=== PATIENT | male | born 1945 | race Caucasian/White ===

== ENCOUNTER 2018-08-27 09:23 | Emergency (ER) | payer OTHER ==
[~2018-08-27] VITALS: Ht 170.2 cm; Wt 67.3 kg
[2018-08-27 09:33] VITALS: Ht 170.2 cm; Wt 67.3 kg
[2018-08-27 09:45] LABS: HEMATOCRIT 44.2 % (42.0-54.0); HEMOGLOBIN 15.1 g/dL (13.5-17.5); LYMPHOCYTES 30.3 % (15-50); MCH 32.8 pg (26.0-34.0); MCHC 34.2 g/dL (31.0-37.0); MCV 95.9 fL (80.0-100.0); MEAN PLATELET VOLUME 9.1 fL (7.4-10.4); PLATELET COUNT 189 10x3/uL (130-400); RBC 4.61 10x6/uL (4.20-6.10); RDW 12.8 % (11.5-14.5)
[2018-08-27 10:01] LABS: ALBUMIN 3.7 g/dL (3.4-5.0); ALKALINE PHOSPHATASE 65 U/L (46-116); ALT (SGPT) 22 U/L (10-68); BILIRUBIN - TOTAL 0.48 mg/dL (0.2-1.3); CALC OSMOLALITY 281 mosm/kg (275-300); CALCIUM 8.7 mg/dL (8.5-10.1); CARBON DIOXIDE 30.5 mmol/L (21.0-32.0); CHLORIDE - SERUM 103 mmol/L (98-107); CREATININE - SERUM 1.1 mg/dL (0.6-1.3); GLUCOSE 98 mg/dL (74-106); PROTEIN - SERUM 7.7 g/dL (6.4-8.2); SODIUM 141 mmol/L (136-145); UREA NITROGEN 16 mg/dL (7-18); eGFR NON AFRICAN AMERICAN 70 mL/min (90-120)
[2018-08-27 10:03] LABS: POTASSIUM - SERUM 5.1 mmol/L (3.5-5.1)
[2018-08-27] MEDS ORDERED: CARDIZEM LA180 MG PO (10:07)
[2018-08-27 10:14] LABS: CKMB 0.8 U/L (0.0-3.6); CREATINE KINASE 100 UL (21-232); PRO BNP 57 pg/mL (0-125); TROPONIN-I < 0.017 ng/mL (0.000-0.060)
[2018-08-27] MEDS ORDERED: ALBUTEROL SULF8.5 GM INH (10:52)
[2018-08-27] MEDS ORDERED: CELEXA20 MG PO (10:53)
[2018-08-27] MEDS ORDERED: CYCLOBENZAPRINE5 MG PO (10:54)
[2018-08-27] MEDS ORDERED: MULTI-DAY VITAM1 TAB PO (10:55)
[2018-08-27] MEDS ORDERED: FLOMAX0.4 MG PO (10:56)
[2018-08-27] MEDS ORDERED: STIOLTO RESPIMAT4 GM INH (10:56)
[2018-08-27 11:00] VITALS: BP 155/82
== END 2018-08-27 10:43 | disposition home or self-care (01) ==
LOC: D.ER 09:23
PROVIDERS: Emergency Medicine
DX: I48.92 Unspecified atrial flutter (principal)

== ENCOUNTER 2019-05-21 00:31 | Inpatient (IN) | payer MEDICARE ==
[~2019-05-21] VITALS: Ht 170.2 cm; Wt 86.8 kg
[~2019-05-21 00:31] MED LIST: ALBUTEROL SULF8.5 GM INH; CARDIZEM LA180 MG PO; CELEXA20 MG PO; CYCLOBENZAPRINE5 MG PO; FLOMAX0.4 MG PO; MULTI-DAY VITAM1 TAB PO; STIOLTO RESPIMAT4 GM INH
[2019-05-21] MEDS ORDERED: EYE DROPS (00:37)
[2019-05-21] MEDS ORDERED: ATROVENT 0.02%2.5 ML INH (00:38)
--- NOTE | 2019-05-21 01:00 | NUR ---
PT ADVISED OF ADMISSION. PT HAS [facility] AND [facility] A INSURANCE. REGISTRATION CALLED TO SPEAK WITH PT ABOUT INPATIENT STATUS VS [facility] TO [facility]. PT REQUEST TO STAY INPATIENT IN OUR FACILITY.
[2019-05-21 01:10] LABS: BASOPHILS 0.2 % (0-2); EOSINOPHILS 7.4 % (0-7); HEMATOCRIT 45.8 % (42.0-54.0); HEMOGLOBIN 15.1 g/dL (13.5-17.5); IMMATURE GRANULOCYTES 0.3 % (0-5); LYMPHOCYTES 13.8 % (15-50); MCH 31.5 pg (26.0-34.0); MCV 95.4 fL (80.0-100.0); MEAN PLATELET VOLUME 9.2 fL (7.4-10.4); MONOCYTES 9.9 % (2-11); NEUTROPHILS 68.4 % (40-80); RDW 12.9 % (11.5-14.5); WBC 12.9 10x3/uL (4.8-10.8)
[2019-05-21 01:12] LABS: PLATELET COUNT 242 10x3/uL (130-400)
[2019-05-21 01:23] LABS: CALC OSMOLALITY 264 mosm/kg (275-300); CALCIUM 9.3 mg/dL (8.5-10.1); CARBON DIOXIDE 34.2 mmol/L (21.0-32.0); CHLORIDE - SERUM 94 mmol/L (98-107); CREATININE - SERUM 0.9 mg/dL (0.6-1.3); GLUCOSE 109 mg/dL (74-106); POTASSIUM - SERUM 3.4 mmol/L (3.5-5.1); SODIUM 132 mmol/L (136-145); UREA NITROGEN 10 mg/dL (7-18); eGFR NON AFRICAN AMERICAN 88 mL/min (90-120)
[2019-05-21 01:37] LABS: ALBUMIN 2.9 g/dL (3.4-5.0); ALKALINE PHOSPHATASE 100 U/L (46-116); ALT (SGPT) 24 U/L (10-68); BILIRUBIN - TOTAL 0.49 mg/dL (0.2-1.3); CREATINE KINASE 20 UL (21-232); PRO BNP 164 pg/mL (0-125); PROTEIN - SERUM 7.9 g/dL (6.4-8.2); TROPONIN-I < 0.017 ng/mL (0.000-0.060)
--- NOTE | 2019-05-21 02:16 | NUR ---
INFUSION OF ZOSYN COMPLETE AT THIS TIME.
[2019-05-21] MEDS ORDERED: XALATAN 0.0052.5 ML LEFT EYE (02:44)
[2019-05-21] MEDS ORDERED: PRED FORTE5 ML LEFT EYE (02:46)
--- NOTE | 2019-05-21 02:57 | NUR ---
RECEIVED ORDER FOR TUMS FROM Juan HOOD APN FOR C/O HEARTBURN.
[2019-05-21 03:08] VITALS: BP 136/62; BMI 25.1
[2019-05-21 05:26] VITALS: BP 136/67
[2019-05-21 08:34] VITALS: BP 123/79
--- NOTE | 2019-05-21 09:00 | NUR ---
LAERT AND ORIENTED X4 WITH FALL PRECAUTIONS IN PLACE. LUNGS DIMINISHED POSTERIOR X4. O2 2L HI FLOW. IVF INFUSING AT PRESCRIBED RATE TO LT. HAND. DENIES ANY PAIN OR DISCOMFORT AND ENCOURAGED TO USE CALL LIGHT FOR ASSSIT.
[2019-05-21 12:52] VITALS: BP 111/71
[2019-05-21 13:02] VITALS: BMI 25.0
[2019-05-21 16:19] VITALS: BP 113/62
--- NOTE | 2019-05-21 19:00 | NUR ---
BEDSIDE REPORT RECEIVED AND CARE OF PT ASSUMED. PT LYING IN HIGH ALDRIDGE'S POSITION WATCHING TV. IV TO LEFT HAND PATENT WITH NS W/ 20 KCL INFUSING AT 75 ML/HR. TELEMETRY IN PLACE PER ORDER. WILL MONITOR FOR NEEDS.
--- NOTE | 2019-05-21 21:13 | NUR ---
HS MEDICATIONS GIVEN. WILL CONTINUE TO MONITOR FOR NEEDS.
[2019-05-21 21:36] VITALS: BP 128/74
[2019-05-22 01:05] VITALS: BP 130/61
[2019-05-22 05:16] VITALS: BP 139/82
[2019-05-22 06:33] LABS: BASOPHILS 0 % (0-2); EOSINOPHILS 0 % (0-7); HEMOGLOBIN 12.2 g/dL (13.5-17.5); IMMATURE GRANULOCYTES 0.2 % (0-5); LYMPHOCYTES 3.9 % (15-50); MCHC 32.1 g/dL (31.0-37.0); MCV 96.4 fL (80.0-100.0); MEAN PLATELET VOLUME 9.8 fL (7.4-10.4); MONOCYTES 3.9 % (2-11); PLATELET COUNT 282 10x3/uL (130-400); RBC 3.94 10x6/uL (4.20-6.10); RDW 13.2 % (11.5-14.5)
[2019-05-22 06:34] LABS: WBC 17.4 10x3/uL (4.8-10.8)
[2019-05-22 06:43] LABS: CALC OSMOLALITY 273 mosm/kg (275-300); CALCIUM 8.4 mg/dL (8.5-10.1); CHLORIDE - SERUM 98 mmol/L (98-107); CREATININE - SERUM 0.7 mg/dL (0.6-1.3); GLUCOSE 128 mg/dL (74-106); MAGNESIUM - SERUM 1.9 mg/dL (1.8-2.4); PHOSPHOROUS 3.4 mg/dL (2.5-4.9); SODIUM 136 mmol/L (136-145); UREA NITROGEN 12 mg/dL (7-18); eGFR NON AFRICAN AMERICAN > 90 mL/min (90-120)
[2019-05-22 07:56] VITALS: BP 134/77
--- NOTE | 2019-05-22 09:26 | NUR ---
PT ALERT X 4. BREATH SOUNDS DIMINISHED TO LOWER LOBES, 12L O2 PER HIGH FLOW NC, BREATHING SHALLOW, REPORTING SOB. TELEMETRY IN PLACE. IV TO LEFT HAND, PATENT, DRESSING CDI. PT REPORTING NO PAIN AT THIS TIME. BED LOW, CALL LIGHT IN REACH. NO OTHER NEEDS AT THIS TIME.
--- NOTE | 2019-05-22 19:00 | NUR ---
BEDSIDE REPORT RECEIVED AND CARE OF PT ASSUMED. PT LYING IN LOW ALDRIDGE'S POSITION WITH EYES CLOSED. IV TO LEFT HAND PATENT WITH NS W/ 20 KCL INFUSING AT 75 ML/HR. O2 IN USE VIA HIGH FLOW NC AT [address] WILL MONITOR FOR NEEDS.
[2019-05-22 19:30] VITALS: BP 157/92
--- NOTE | 2019-05-22 20:33 | NUR ---
HS MEDICATIONS GIVEN. WILL CONTINUE TO MONITOR FOR NEEDS.
[2019-05-23 00:30] VITALS: BP 162/87
[2019-05-23 04:30] VITALS: BP 140/77
[2019-05-23 05:54] LABS: BASOPHILS 0.1 % (0-2); EOSINOPHILS 0 % (0-7); HEMATOCRIT 38.5 % (42.0-54.0); HEMOGLOBIN 12.3 g/dL (13.5-17.5); IMMATURE GRANULOCYTES 0.4 % (0-5); LYMPHOCYTES 4.8 % (15-50); MCH 30.8 pg (26.0-34.0); MCHC 31.9 g/dL (31.0-37.0); MCV 96.5 fL (80.0-100.0); MEAN PLATELET VOLUME 9.7 fL (7.4-10.4); MONOCYTES 4.5 % (2-11); NEUTROPHILS 90.2 % (40-80); PLATELET COUNT 298 10x3/uL (130-400); RBC 3.99 10x6/uL (4.20-6.10); RDW 13.2 % (11.5-14.5); WBC 16.6 10x3/uL (4.8-10.8)
[2019-05-23 05:59] LABS: CALC OSMOLALITY 277 mosm/kg (275-300); CALCIUM 8.3 mg/dL (8.5-10.1); CARBON DIOXIDE 30.8 mmol/L (21.0-32.0); CHLORIDE - SERUM 101 mmol/L (98-107); CREATININE - SERUM 0.7 mg/dL (0.6-1.3); GLUCOSE 128 mg/dL (74-106); POTASSIUM - SERUM 3.7 mmol/L (3.5-5.1); SODIUM 138 mmol/L (136-145); UREA NITROGEN 13 mg/dL (7-18); VANCOMYCIN - TROUGH 6.4 ug/mL (10.0-20.0); eGFR NON AFRICAN AMERICAN > 90 mL/min (90-120)
[2019-05-23 08:10] VITALS: BP 153/85
--- NOTE | 2019-05-23 09:00 | NUR ---
ALERT AND ORIENTED X4. DYSPNEA NOTED W/O EXERTION LUNGS DIMISHED X4 ANTERIOR. WITH O2 12L HI-FLOW. TELEMETRY INTACT. IV TO LT. HAND WITH IVF INFUSING AT PRESCRIBED RATE W/O ANY S/S OF INFECTION /INFILTRATION. SCD'S IN PLACE. ENOCUARGED TO USE CALL LIGHT FOR ASSSIT.
--- NOTE | 2019-05-23 10:40 | NUR ---
RESPIRATORY THERAPY HERE FOR TREATMENT AND CONTINUED EVAL.
[2019-05-23 12:11] VITALS: BP 121/83
--- NOTE | 2019-05-23 19:00 | NUR ---
BEDSIDE REPORT RECEIVED AND CARE OF PT ASSUMED. PT LYING IN HIGH ALDRIDGE'S POSITION. IV TO RIGHT HAND PATENT WITH NS W/ 20 KCL INFUSING AT 75 ML/HR. TELEMETRY IN PLACE. O2 IN USE AT 12 L VIA HI FLOW NC. WILL MONITOR FOR NEEDS.
[2019-05-23 19:30] VITALS: BP 153/74
--- NOTE | 2019-05-23 20:33 | NUR ---
HS MEDICATIONS GIVEN. WILL CONTINUE TO MONITOR FOR NEEDS.
--- NOTE | 2019-05-23 20:40 | NUR ---
TUMS 1000 MG PO GIVEN PER REQUEST FOR HEARTBURN.
--- NOTE | 2019-05-23 21:00 | NUR ---
RT PLACED BIPAP ON PT. WILL CONTINUE TO MONITOR CLOSELY FOR NEEDS.
[2019-05-24 00:30] VITALS: BP 148/67
[2019-05-24 04:00] VITALS: BP 150/74
--- NOTE | 2019-05-24 05:30 | NUR ---
PT BATHED AND ALL LINENS AND GOWN CHANGED. POSITIONED FOR COMFORT.
[2019-05-24 06:30] LABS: BASOPHILS 0 % (0-2); EOSINOPHILS 0 % (0-7); HEMATOCRIT 42.4 % (42.0-54.0); HEMOGLOBIN 13.2 g/dL (13.5-17.5); IMMATURE GRANULOCYTES 0.2 % (0-5); LYMPHOCYTES 5.4 % (15-50); MCH 30.3 pg (26.0-34.0); MCHC 31.1 g/dL (31.0-37.0); MCV 97.2 fL (80.0-100.0); MEAN PLATELET VOLUME 9.7 fL (7.4-10.4); MONOCYTES 4.5 % (2-11); NEUTROPHILS 89.9 % (40-80); PLATELET COUNT 295 10x3/uL (130-400); RBC 4.36 10x6/uL (4.20-6.10); RDW 13.2 % (11.5-14.5); WBC 14.4 10x3/uL (4.8-10.8)
[2019-05-24 06:50] LABS: CALC OSMOLALITY 279 mosm/kg (275-300); CALCIUM 8.2 mg/dL (8.5-10.1); CARBON DIOXIDE 32.9 mmol/L (21.0-32.0); CHLORIDE - SERUM 101 mmol/L (98-107); CREATININE - SERUM 0.8 mg/dL (0.6-1.3); GLUCOSE 123 mg/dL (74-106); POTASSIUM - SERUM 3.8 mmol/L (3.5-5.1); SODIUM 139 mmol/L (136-145); UREA NITROGEN 15 mg/dL (7-18); eGFR NON AFRICAN AMERICAN > 90 mL/min (90-120)
[2019-05-24 08:29] VITALS: BP 165/85
--- NOTE | 2019-05-24 10:50 | NUR ---
PT RESTING IN BED. NO SIGNS OF DISTRESS. IV TO RIGHT HAND PATENT NO REDNESS OR TENDERNESS. ON TELEMETRY 76 SR. ON 12L HIGH FLOW. DENIES ANY FURHTER NEED AT THIS TIME. CALL LIGHT IN REACH BED LOW POSITION NO FAMILY AT BEDSIDE AT THIS TIME.
[2019-05-24 13:00] VITALS: BP 142/72
--- NOTE | 2019-05-24 14:07 | NUR ---
Nutrition follow-up: Diet: Low sodium PO intake ~77% average of last 9 meals Labs reviewed +BM Wt: 160# PO intake is good at this time RDN following.
[2019-05-24 15:45] VITALS: BP 137/71
--- NOTE | 2019-05-24 18:45 | NUR ---
I have reviewed this patient and I concur with the Shift Assessment completed by the Licensed Practical Nurse today this shift.
[2019-05-24 19:30] VITALS: BP 152/83; BP 162/84
--- NOTE | 2019-05-24 19:35 | NUR ---
PT LYING IN BED WITHOUT DISTRESS, AOX4. IV RIGHT HAND INFUSING NS20K @ 75. FAMILY AT BEDSIDE. DENIES NEEDS. CL IN REACH, WILL CTM
[2019-05-25 00:30] VITALS: BP 160/80
[2019-05-25 04:30] VITALS: BP 172/78
[2019-05-25 05:06] LABS: BASOPHILS 0.1 % (0-2); EOSINOPHILS 0 % (0-7); HEMATOCRIT 41.1 % (42.0-54.0); HEMOGLOBIN 13.1 g/dL (13.5-17.5); IMMATURE GRANULOCYTES 0.3 % (0-5); LYMPHOCYTES 5.1 % (15-50); MCH 30.5 pg (26.0-34.0); MCHC 31.9 g/dL (31.0-37.0); MCV 95.6 fL (80.0-100.0); MEAN PLATELET VOLUME 9.6 fL (7.4-10.4); MONOCYTES 6.7 % (2-11); NEUTROPHILS 87.8 % (40-80); PLATELET COUNT 316 10x3/uL (130-400); RDW 13.2 % (11.5-14.5); WBC 15.2 10x3/uL (4.8-10.8)
[2019-05-25 05:46] LABS: CALC OSMOLALITY 281 mosm/kg (275-300); CARBON DIOXIDE 30.9 mmol/L (21.0-32.0); CHLORIDE - SERUM 101 mmol/L (98-107); CREATININE - SERUM 0.8 mg/dL (0.6-1.3); GLUCOSE 141 mg/dL (74-106); POTASSIUM - SERUM 3.6 mmol/L (3.5-5.1); SODIUM 139 mmol/L (136-145); UREA NITROGEN 18 mg/dL (7-18); VANCOMYCIN - TROUGH 15.5 ug/mL (10.0-20.0); eGFR NON AFRICAN AMERICAN > 90 mL/min (90-120)
[2019-05-25 07:55] VITALS: BP 171/101
[2019-05-25 16:29] VITALS: BP 149/71
--- NOTE | 2019-05-25 18:44 | NUR ---
I have reviewed this patient and I concur with the Shift Assessment completed by the Licensed Practical Nurse today this shift.
[2019-05-25 19:30] VITALS: BP 169/80
--- NOTE | 2019-05-25 19:45 | NUR ---
PT SITTING UP IN BED WITHOUT DISTRESS, AOX4. IV LEFT HAND INFUSING NS20K @ 75. TELE IN PLACE. DENIES PAIN. STATES HE IS HAVING INDIGESTION, TUMES GIVEN. O2 12L HFNC. DENIES OTHER NEEDS AT THIS TIME. CL IN REACH, WILL CTM
[2019-05-26 00:30] VITALS: BP 172/74
[2019-05-26 05:09] VITALS: BP 140/62
--- NOTE | 2019-05-26 07:32 | NUR ---
PT RESTING IN BED. NO SIGNS OF DISTRESS. IV TO LEFT HAND PATENT NO REDNESS OR TENDERNESS. ON TELEMETRY 82 SR. ON 12L HIGHFLOW. DENIES ANY FURTHER NEED AT THIS TIME. CALL LIGHT IN REACH. BED LOW POSITION. NO FAMILY AT BEDSIDE AT THIS TIME.
[2019-05-26 07:33] LABS: CALC OSMOLALITY 274 mosm/kg (275-300); CALCIUM 7.8 mg/dL (8.5-10.1); CARBON DIOXIDE 32.2 mmol/L (21.0-32.0); CHLORIDE - SERUM 100 mmol/L (98-107); CREATININE - SERUM 0.7 mg/dL (0.6-1.3); GLUCOSE 122 mg/dL (74-106); POTASSIUM - SERUM 3.8 mmol/L (3.5-5.1); SODIUM 137 mmol/L (136-145); eGFR NON AFRICAN AMERICAN > 90 mL/min (90-120)
[2019-05-26 07:34] LABS: UREA NITROGEN 13 mg/dL (7-18)
--- NOTE | 2019-05-26 07:39 | MORECARE ---
CASE MANAGEMENT DISCHARGE SUMMARY PATIENT: NINFA CHAVEZ UNIT: [id number] ADM DATE: 05/21/19 AGE: 74 : 46 SEX: M ROOM/BED: D.2232 AUTHOR: ISAIAH SANDOVAL PHYSICIAN: REFERRING PHYSICIAN: QUIANA CRUZ MD DATE OF SERVICE: 05/26/19 Discharge Plan Patient Name: NINFA CHAVEZ [facility] [facility] 1945 Planned Disposition: Nursing Facility NIC Cert Anticipated Discharge Date: Discharge Date: Expected LOS: Initial Reviewer: [email or web address] Initial Review Date: 05/26/2019 Generated: 05/26/19 8:39 am DCPIA - Discharge Planning Initial Assessment Updated by [email or web address]: Lilliana Gonsalez on 05/26/19 7:38 am * Is the patient Alert and Oriented? Yes * How many steps to enter\exit or inside your home? 0/0 * PCP Dr Cruz at [facility] * Pharmacy All medications from [facility] * Preadmission Environment [facility] * Facility Name [facility] * ADLs Partial Dependent * Partial ADLs (Assistance needed) Ambulation Bathing Dressing Medication Management Toileting Transfers * Equipment Oxygen Wheelchair * Other Equipment All equipment from [facility]. States he is always in a wheelchair and uses oxygen 24 hours a day. * List name and contact numbers for known caregivers / representatives who currently or will assist patient after discharge: Lazara Chavez - - c [phone] [phone] * Verbal permission to speak to the caregivers and representatives has been obtained from the patient. Yes * Community resources currently utilized None * Additional services required to return to the preadmission environment? No * Can the patient safely return to the preadmission environment? Yes * Has this patient been hospitalized within the prior 30 days at any hospital? No Patient Name: NINFA CHAVEZ Page [phone] at 0739 All edits/amendments must be made on the electronic document DICTATION DATE: 05/26/19738 CARBIDE TOOL DIE MAKER: RICCI 05/26/19738 RPT#: [id number] DC DATE: STATUS: ADM IN [facility] [address] [facility] [place] [address] END OF REPORT
[2019-05-26 07:51] LABS: BASOPHILS 0 % (0-2); EOSINOPHILS 0.1 % (0-7); HEMATOCRIT 43.4 % (42.0-54.0); HEMOGLOBIN 13.9 g/dL (13.5-17.5); IMMATURE GRANULOCYTES 0.2 % (0-5); LYMPHOCYTES 5.2 % (15-50); MCH 30.5 pg (26.0-34.0); MCV 95.4 fL (80.0-100.0); MEAN PLATELET VOLUME 9.5 fL (7.4-10.4); MONOCYTES 4.4 % (2-11); NEUTROPHILS 90.1 % (40-80); PLATELET COUNT 329 10x3/uL (130-400); RBC 4.55 10x6/uL (4.20-6.10); RDW 13.2 % (11.5-14.5); WBC 11.8 10x3/uL (4.8-10.8)
--- NOTE | 2019-05-26 07:52 | MORECARE ---
CASE MANAGEMENT DISCHARGE SUMMARY PATIENT: NINFA JULIAN UNIT: [id number] ADM DATE: 05/21/19 AGE: 74 : 46 SEX: M ROOM/BED: D.2232 AUTHOR: LORIDOC PHYSICIAN: REFERRING PHYSICIAN: QUIANA CRUZ MD DATE OF SERVICE: 05/26/19 Discharge Plan Patient Name: NINFA JULIAN Facility: [facility]:[place] : 1945 Planned Disposition: Nursing Facility [facility] Cert Anticipated Discharge Date: Discharge Date: Expected LOS: Initial Reviewer: [email or web address] Initial Review Date: 05/26/2019 Generated: 05/26/19 8:52 am Comments DCP- Discharge Planning Updated by [email or web address]: Lilliana Gonsalez on 05/26/19 6:[address] Patient Name: NINFA JULIAN Admission Status: ER Accout number: [id number] Admission Date: 05-21-2019 : 1945 Admission Diagnosis: Attending: QUIANA CRUZ Current LOS: 5 Anticipated DC Date: Planned Disposition: Nursing Facility [facility] Cert Primary Insurance: MEDICARE PART A ONLY Discharge Planning Comments: CM met with patient to discuss discharge planning, he is alone in the room. He states he lives at the [facility] in a shelter bed. States he has lived there for about a month and a half. He states plan is to return to The [facility]. CM will continue to follow and assist with discharge planning/needs. Meter Tester Polyphase: Lilliana Gonsalez DCPIA - Discharge Planning Initial Assessment Updated by [email or web address]: Lilliana Gonsalez on 05/26/19 7:38 am * Is the patient Alert and Oriented? Yes * How many steps to enter\exit or inside your home? 0/0 * PCP Dr Cruz at [facility] * Pharmacy All medications from [facility] * Preadmission Environment [facility] * Facility Name [facility] * ADLs Partial Dependent * Partial ADLs (Assistance needed) Ambulation Bathing Dressing Medication Management Toileting Transfers * Equipment Oxygen Wheelchair * Other Equipment All equipment from [facility]. States he is always in a wheelchair and uses oxygen 24 hours a day. * List name and contact numbers for known caregivers / representatives who currently or will assist patient after discharge: Lazara Christian - c [phone] * Verbal permission to speak to the caregivers and representatives has been obtained from the patient. Yes * Community resources currently utilized None * Additional services required to return to the preadmission environment? No * Can the patient safely return to the preadmission environment? Yes * Has this patient been hospitalized within the prior 30 days at any hospital? No Last DP export: 05/26/19 6:39 a Patient Name: NINFA JULIAN Page [phone] at 0752 All edits/amendments must be made on the electronic document DICTATION DATE: 05/26/19750 CHEESEMAKING LABORER: RICCI 05/26/19750 RPT#: [id number] DC DATE: STATUS: ADM IN [facility] [address] [place] [address] END OF REPORT
[2019-05-26 08:03] VITALS: BP 151/85
[2019-05-26 12:15] VITALS: BP 149/80
--- NOTE | 2019-05-26 14:07 | EC ---
PATIENT:NINFA JULIAN DATE OF SERVICE: 05/21/19 SEX: M MEDICAL RECORD: [id number] DATE OF : [birth year] LOCATION:D.MS [facility] AGE OF PATIENT: 74 ADMISSION DATE: 05/21/19 REFERRING PHYSICIAN: INTERPRETING PHYSICIAN: THANIA CORW MD ECHOCARDIOGRAM REPORT ECHO CHARGES 4 ECHO COMPLETE Date: 05/22/19 CLINICAL DIAGNOSIS: CHF ECHOCARDIOGRAPHIC MEASUREMENTS (adult normal given) AC root (d.<3.7cm) 3.0 cm LV Septum d (<1.2 cm> 1.2 cm Valve Excursion 1.3 cm LV Septum (systole) 1.6 cm Left Atria (s.<4.0cm> 3.2 cm LVPW d(<1.2cm) 1.5 cm RV (d.<2.3cm) 3.2 cm LVPW (sytole) 1.6 cm LV diastole(<5.6CM) 4.9 cm MV E-F(>70mm/sec) cm LV systole 3.3 cm LVOT Diameter 1.8 cm MV exc.(>10mm) 1.6 cm Est.ejection fraction (50-75%) % DOPPLER: LVIT cm/sec A 92.0 cm/sec E 80.0 cm/sec LA cm/sec RVSP 24 mmHg LVOT 99 cm/sec AOP1/2T m/s Asc. Ao 135 cm/sec RVOT 75 cm/sec RA cm/sec PA 118 cm/sec AV Gradient Peak 7.32 mmHg AV Mean 4.28 mmHg AV Area 2.0 cm MV Gradient Peak 3.42 mmHg MV Mean 1.42 mmHg MV Area cm COMMENTS: Supervisor Epoxy Fabrication: Delphine MADRID Doll Wig Maker: 1 Dr. Crow TAPE# PACS Pericardial Effusion N DATE OF SERVICE: 05/22/2019 FINDINGS: 1. Left ventricular chamber size is within normal limits. Left ventricular systolic function is normal. Overall ejection fraction estimated at 60%. 2. Left atrium, right atrium, and right ventricle chamber size is within normal limits. 3. Valvular structures have normal structure and motion. 4. Doppler interrogation reveals trace tricuspid regurgitation, no other valvular insufficiency or stenosis. Pulmonary systolic pressure estimated at 24 ECHOCARDIOGRAM REPORT [id number] NINFA JULIAN mmHg. 5. No evidence of pericardial effusion or left ventricular thrombus. TRANSINT:[id number] Voice Confirmation ID: [id number] DOCUMENT ID: [id number] THANIA CROW MD at 1407 CC: [id number] DICTATION DATE: 05/22/191751 BUSINESS ENTERPRISE OFFICER: 05/22/19 211 ADM IN [place] [id number] [place] [address]
[2019-05-26 17:20] VITALS: BP 128/65
--- NOTE | 2019-05-26 18:45 | NUR ---
I have reviewed this patient and I concur with the Shift Assessment completed by the Licensed Practical Nurse today this shift.
[2019-05-26 21:00] VITALS: BP 120/71
--- NOTE | 2019-05-26 22:49 | NUR ---
A/O WITH NO SIGNS OF ACUTE DISTRESS NOTED. IV TO THE LT HAND WITH NO REDNESS OR SWELLING NOTED. NC @12L AND MARCELLA ALARM ON. DENIES NO NEEDS AT THIS TIME. CONTINUE PLAN OF CARE.
[2019-05-27 01:18] VITALS: BP 142/66
[2019-05-27 03:07] LABS: IMMUNOGLOBULIN E 3455 IU/mL (6-495)
[2019-05-27 04:22] VITALS: BP 142/79
[2019-05-27 06:32] LABS: BASOPHILS 0 % (0-2); EOSINOPHILS 0 % (0-7); HEMATOCRIT 42.1 % (42.0-54.0); HEMOGLOBIN 13.5 g/dL (13.5-17.5); IMMATURE GRANULOCYTES 0.4 % (0-5); LYMPHOCYTES 3.5 % (15-50); MCH 30.5 pg (26.0-34.0); MCHC 32.1 g/dL (31.0-37.0); MCV 95.2 fL (80.0-100.0); MEAN PLATELET VOLUME 9.6 fL (7.4-10.4); MONOCYTES 3.8 % (2-11); NEUTROPHILS 92.3 % (40-80); PLATELET COUNT 331 10x3/uL (130-400); RBC 4.42 10x6/uL (4.20-6.10); RDW 13.3 % (11.5-14.5)
[2019-05-27 06:37] LABS: WBC 15.5 10x3/uL (4.8-10.8)
[2019-05-27 07:16] LABS: CALCIUM 7.8 mg/dL (8.5-10.1); CARBON DIOXIDE 35.4 mmol/L (21.0-32.0); CHLORIDE - SERUM 100 mmol/L (98-107); GLUCOSE 153 mg/dL (74-106); POTASSIUM - SERUM 3.4 mmol/L (3.5-5.1); SODIUM 140 mmol/L (136-145); eGFR NON AFRICAN AMERICAN 88 mL/min (90-120)
[2019-05-27 07:17] LABS: CALC OSMOLALITY 284 mosm/kg (275-300); CREATININE - SERUM 0.9 mg/dL (0.6-1.3); UREA NITROGEN 20 mg/dL (7-18)
--- NOTE | 2019-05-27 07:35 | NUR ---
PT RESTING IN BED WITH BIPAP IN PLACE. NO ACUTE DISTRESS NOTED AT THIS TIME. DENIES PAIN AT THIS TIME. IV TO LEFT HAND WITH NS W/20KCL @ 50ML/HR INFUSING VIA PUMP. SITE WITHOUT REDNESS OR EDEMA. PT DENIES FURTHER NEEDS AT THIS TIME. CL WITHIN REACH. ENCOURAGED TO CALL WITH NEEDS. CONTINUE POC
[2019-05-27 09:22] VITALS: BP 154/84
--- NOTE | 2019-05-27 12:09 | MORECARE ---
CASE MANAGEMENT DISCHARGE SUMMARY PATIENT: NINFA CHAVEZ UNIT: [id number] ADM DATE: 05/21/19 AGE: 74 : [birth year] SEX: M ROOM/BED: D.2232 AUTHOR: ISAIAH SANDOVAL PHYSICIAN: REFERRING PHYSICIAN: QUIANA CRUZ MD DATE OF SERVICE: 05/27/19 Discharge Plan Patient Name: NINFA CHAVEZ Facility: [facility]:[place] : 1945 Planned Disposition: Nursing Facility [facility] Cert Anticipated Discharge Date: Discharge Date: Expected LOS: Initial Reviewer: [email or web address] Initial Review Date: 05/26/2019 Generated: 05/27/19 1:09 pm DCP- Discharge Planning Updated by [email or web address]: Lilliana Gonsalez on 05/26/19 6:[address] Patient Name: NINFA CHAVEZ Admission Status: ER Accout number: [id number] Admission Date: 05-21-2019 : 1945 Admission Diagnosis: Attending: QUIANA CRZU Current LOS: 5 Anticipated DC Date: Planned Disposition: Nursing Facility [facility] Cert Primary Insurance: MEDICARE PART A ONLY Discharge Planning Comments: CM met with patient to discuss discharge planning, he is alone in the room. He states he lives at the [facility] in a [facility] bed. States he has lived there for about a month and a half. He states plan is to return to [facility]. CM will continue to follow and assist with discharge planning/needs. User Acceptance Tester: Lilliana Gonsalez DCPIA - Discharge Planning Initial Assessment Updated by [email or web address]: Lilliana Gonsalez on 05/26/19 7:38 am * Is the patient Alert and Oriented? Yes * How many steps to enter\exit or inside your home? 0/0 * PCP Dr Cruz at [facility] * Pharmacy All medications from [facility] * Preadmission Environment Skilled Nursing [facility] * Facility Name [facility] * ADLs Partial Dependent * Partial ADLs (Assistance needed) Ambulation Bathing Dressing Medication Management Toileting Transfers * Equipment Oxygen Wheelchair * Other Equipment All equipment from [facility]. States he is always in a wheelchair and uses oxygen 24 hours a day. * List name and contact numbers for known caregivers / representatives who currently or will assist patient after discharge: Lazara Chavez - - c [phone] * Verbal permission to speak to the caregivers and representatives has been obtained from the patient. Yes * Community resources currently utilized None * Additional services required to return to the preadmission environment? No * Can the patient safely return to the preadmission environment? Yes * Has this patient been hospitalized within the prior 30 days at any hospital? No External Providers External Provider: [facility] Next Contact Date: Service Request Date: Service Type: Resolution: Reviewer: Comments: Coverage Notice Reviewer: [email or web address] Gino Herberty Wallace Notice Issued Date-Time: 05/26/2019 7:51 Notice Type: Patient Choice Letter Notice Delivered To: Patient Relationship to Patient: Self Lode Miner Name: Delivery Method: HAND - Hand Delivered Karlene Days: Prior Verbal Notification: Recipient Understood Notice: Yes Recipient Signature: Yes Med Rec Note Co-signed by Attending: Coverage Notice Comment: [facility] DP export: 05/26/19 6:52 a Patient Name: NINFA CHAVEZ Page 58037 at 1209 All edits/amendments must be made on the electronic document DICTATION DATE: 05/27/19 120 PROCESS SAFETY SPECIALIST: RICCI 05/27/19 1209 RPT#: [id number] DC DATE: STATUS: ADM IN [facility] [address] [place] [address] END OF REPORT
[2019-05-27 12:28] VITALS: BP 123/80
[2019-05-27 16:29] VITALS: BP 134/71
[2019-05-27 20:14] VITALS: BP 136/74
--- NOTE | 2019-05-27 22:09 | NUR ---
A/O WITH NO SIGNS OF ACUTE DISTRESS. IV TO THE LT WRIST WITH NO REDNESS OR SWELLING NOTED. NC @12L AND MARCELLA ALARM ON. DENIES NO NEEDS AT THIS TIME. CONTINUE PLAN OF CARE.
[2019-05-28 00:37] VITALS: BP 150/69
[2019-05-28 04:48] VITALS: BP 154/78
[2019-05-28 06:28] LABS: BASOPHILS 0.1 % (0-2); EOSINOPHILS 0 % (0-7); HEMATOCRIT 44.2 % (42.0-54.0); HEMOGLOBIN 13.9 g/dL (13.5-17.5); IMMATURE GRANULOCYTES 0.4 % (0-5); LYMPHOCYTES 3.7 % (15-50); MCH 30.2 pg (26.0-34.0); MCHC 31.4 g/dL (31.0-37.0); MCV 96.1 fL (80.0-100.0); MEAN PLATELET VOLUME 9.6 fL (7.4-10.4); MONOCYTES 4.2 % (2-11); NEUTROPHILS 91.6 % (40-80); PLATELET COUNT 356 10x3/uL (130-400); RDW 13.4 % (11.5-14.5); WBC 17.7 10x3/uL (4.8-10.8)
[2019-05-28 06:47] LABS: CALC OSMOLALITY 286 mosm/kg (275-300); CARBON DIOXIDE 34.7 mmol/L (21.0-32.0); CHLORIDE - SERUM 102 mmol/L (98-107); CREATININE - SERUM 0.8 mg/dL (0.6-1.3); GLUCOSE 125 mg/dL (74-106); POTASSIUM - SERUM 3.5 mmol/L (3.5-5.1); SODIUM 142 mmol/L (136-145); UREA NITROGEN 20 mg/dL (7-18); eGFR NON AFRICAN AMERICAN > 90 mL/min (90-120)
[2019-05-28 08:25] VITALS: BP 139/84
--- NOTE | 2019-05-28 09:53 | NUR ---
ALERT AND ORIENTED X4 WITH 02 12L HI FLOW. NO DYSPNEA NOTED WITH INSPIRATORY CRACKLES NOTED TO BUQ AND BLQ ANTERIOR.CAP REFILL <3 SEC. TELEMETRY INTACT. DENIES ANY PAIN OR DISCOMFORT WITH NON-PRODUCTIVE COUGH. ENCOURAGED TO USE CALL LIGHT FOR ASSSIT.
[2019-05-28 12:46] VITALS: BP 157/80
--- NOTE | 2019-05-28 13:37 | NUR ---
Nutrition follow-up: diet: Low sodium PO intake 75% average of last 3 meals labs reviewed Wt: 160# +BM RDN following.
--- NOTE | 2019-05-28 19:00 | NUR ---
BEDSIDE REPORT RECEIVED AND CARE OF PT ASSUMED. PT LYING IN HIGH ALDRIDGE'S POSITION WITH 12L HIGH FLOW NC IN USE. RIGHT FA PATENT WITH NS W/ 20 KCL IN FUSING AT 50 ML/HR. TELEMETRY IN PLACE AND READING 83 SR AT THIS ASSESSMENT. WILL MONITOR FOR NEEDS.
[2019-05-28 20:16] VITALS: BP 152/79
--- NOTE | 2019-05-28 20:53 | NUR ---
HS MEDICATIONS GIVEN TO INCLUDE TUMS PER PT REQUEST, PER PRN ORDER.
--- NOTE | 2019-05-28 21:30 | NUR ---
BIPAP PLACED BY RT PER ORDER.
[2019-05-29 00:46] VITALS: BP 167/97
[2019-05-29 05:31] VITALS: BP 164/91
[2019-05-29 05:32] LABS: HEMOGLOBIN 13.4 g/dL (13.5-17.5); MCH 30.5 pg (26.0-34.0); MCHC 31.9 g/dL (31.0-37.0); MCV 95.5 fL (80.0-100.0); MEAN PLATELET VOLUME 9.3 fL (7.4-10.4); PLATELET COUNT 388 10x3/uL (130-400); RDW 13.4 % (11.5-14.5); WBC 20.8 10x3/uL (4.8-10.8)
[2019-05-29 05:34] LABS: EOSINOPHILS 1 % (0-7); LYMPHOCYTES 5 % (15-50); MONOCYTES 3 % (2-11); NEUTROPHILS 89 % (40-80); PLATELET ESTIMATE NORMAL
[2019-05-29 05:48] LABS: CALC OSMOLALITY 284 mosm/kg (275-300); CARBON DIOXIDE 36.1 mmol/L (21.0-32.0); CHLORIDE - SERUM 102 mmol/L (98-107); CREATININE - SERUM 0.9 mg/dL (0.6-1.3); GLUCOSE 136 mg/dL (74-106); POTASSIUM - SERUM 3.1 mmol/L (3.5-5.1); SODIUM 141 mmol/L (136-145); UREA NITROGEN 19 mg/dL (7-18); eGFR NON AFRICAN AMERICAN 88 mL/min (90-120)
[2019-05-29 08:20] VITALS: BP 160/94
--- NOTE | 2019-05-29 10:04 | NUR ---
ALERT AND ORIENTED X4. CONTINUES HI-FLOW O2 AT 12 LITERS. TELEMETRY INTACT. INSPIRATORY CRACKES NOTED TO BUQ AND BLQ ANTERIOR BUT IMPROVED FROM YESTERDAY WITH NO DYSPNEA NOTED AT THIS TIME. IVF INFUSING AT PRESCRIBED RATE TO LT. F/A AND INTACT. ENCOUTRAGED TO USE CALL LIGHT FOR ASSIST.
[2019-05-29 12:21] VITALS: BP 161/87
[2019-05-29 17:29] VITALS: BP 149/72
--- NOTE | 2019-05-29 19:00 | NUR ---
BEDSIDE REPORT RECEIVED AND CARE OF PT ASSUMED. PT LYING IN LOW ALDRIDGE'S POSITION WATCHING TV. O2 IN USE AT 12 L VIA HI FLOW NC. TELEMETRY IN PLACE PER ORDER AND READING 81 SR AT THIS ASSESSMENT. IV TO RIGHT FA PATENT WITH NS INFUSING AT 50 ML/HR. WILL MONITOR FOR NEEDS.
[2019-05-29 20:00] VITALS: BP 148/65
--- NOTE | 2019-05-29 20:20 | NUR ---
SPO2 88% ON 12 L HI FLOW. CALLED RT TO ASSESS PT. BIPAP PLACED BY RT.
--- NOTE | 2019-05-29 20:55 | NUR ---
HS MEDICATIONS GIVEN TO INCLUDE TUMS PER REQUEST, PER PRN ORDER. WILL CONTINUE TO MONITOR FOR NEEDS.
[2019-05-30] VITALS: BP 176/98
[2019-05-30 04:00] VITALS: BP 152/81
[2019-05-30 05:36] LABS: BASOPHILS 0 % (0-2); EOSINOPHILS 0 % (0-7); HEMATOCRIT 41.8 % (42.0-54.0); HEMOGLOBIN 13.2 g/dL (13.5-17.5); IMMATURE GRANULOCYTES 0.6 % (0-5); LYMPHOCYTES 3.1 % (15-50); MCH 30.3 pg (26.0-34.0); MCHC 31.6 g/dL (31.0-37.0); MCV 96.1 fL (80.0-100.0); MEAN PLATELET VOLUME 9.4 fL (7.4-10.4); MONOCYTES 3.9 % (2-11); NEUTROPHILS 92.4 % (40-80); PLATELET COUNT 387 10x3/uL (130-400); RBC 4.35 10x6/uL (4.20-6.10); RDW 13.7 % (11.5-14.5); WBC 21.3 10x3/uL (4.8-10.8)
[2019-05-30 05:46] LABS: CALC OSMOLALITY 282 mosm/kg (275-300); CALCIUM 7.6 mg/dL (8.5-10.1); CARBON DIOXIDE 35.9 mmol/L (21.0-32.0); CHLORIDE - SERUM 101 mmol/L (98-107); CREATININE - SERUM 0.8 mg/dL (0.6-1.3); GLUCOSE 128 mg/dL (74-106); POTASSIUM - SERUM 3.4 mmol/L (3.5-5.1); SODIUM 140 mmol/L (136-145); UREA NITROGEN 17 mg/dL (7-18); eGFR NON AFRICAN AMERICAN > 90 mL/min (90-120)
[2019-05-30 08:40] VITALS: BP 147/80
--- NOTE | 2019-05-30 09:00 | NUR ---
ALERT AND OREINTED X4 NO DYSPNEA NOTED AT THIS TIME WITH OW HIFLOW AT 12 LITERS/MIN. INSPIRATORY CRACLES NOTED X4 ANTERIOR. ADN ENCOURAGED TO USE INCENTIVE SPIROMETER. DENIES ANY PAIN OR DISCOMFORT AT THIS TIME. TELEMETRY INTACT. ENCOURAGED TO USE CALL LIGHT FOR ASSIST.
[2019-05-30 13:22] VITALS: BP 158/80
[2019-05-30 16:46] VITALS: BP 155/83
--- NOTE | 2019-05-30 19:00 | NUR ---
BEDSIDE REPORT RECEIVED AND CARE OF PT ASSUMED. PT LYING IN HIGH ALDRIDGE'S POSITION. O2 IN USE VIA HI FLOW NC AT 12 L. IV TO RIGHT FA PATENT WITH NS W/ 20 KCL INFUSING AT 50 ML/HR. TELEMETRY IN PLACE AND READING 83 SR AT THIS ASSESSMENT.
--- NOTE | 2019-05-30 19:33 | NUR ---
PLACED ON BILEVEL FIO2 80% SP02 CURRENTLY 93% BILATERAL C/D BS RR 36 ZERO CYANOSIS SOB LANIE APPLICATION WELL
--- NOTE | 2019-05-30 19:55 | NUR ---
SPO2 IN THE 80'S PER RT. BIPAP PLACED.
[2019-05-30 20:11] VITALS: BP 135/84
--- NOTE | 2019-05-30 21:42 | NUR ---
HS MEDICATIONS GIVEN. PT REQUESTED TO HAVE BIPAP OFF FOR A WHILE. O2 PLACED VIA HI FLOW NC AT 12 L PER ORDER.
--- NOTE | 2019-05-30 23:00 | NUR ---
BIPAP REPLACED BY RT...SPO2 IN THE 80'S AT THIS ASSESSMENT.
[2019-05-31 00:52] VITALS: BP 140/72
[2019-05-31 05:19] VITALS: BP 160/70
[2019-05-31 06:24] LABS: HEMATOCRIT 41.5 % (42.0-54.0); MCH 30.2 pg (26.0-34.0); MCHC 31.3 g/dL (31.0-37.0); MCV 96.3 fL (80.0-100.0); MEAN PLATELET VOLUME 9.3 fL (7.4-10.4); PLATELET COUNT 220 10x3/uL (130-400); RBC 4.31 10x6/uL (4.20-6.10); RDW 13.6 % (11.5-14.5); WBC 21.2 10x3/uL (4.8-10.8)
[2019-05-31 06:37] LABS: CALC OSMOLALITY 279 mosm/kg (275-300); CALCIUM 7.6 mg/dL (8.5-10.1); CARBON DIOXIDE 34.1 mmol/L (21.0-32.0); CHLORIDE - SERUM 102 mmol/L (98-107); CREATININE - SERUM 0.7 mg/dL (0.6-1.3); GLUCOSE 130 mg/dL (74-106); POTASSIUM - SERUM 3.9 mmol/L (3.5-5.1); SODIUM 138 mmol/L (136-145); UREA NITROGEN 17 mg/dL (7-18); eGFR NON AFRICAN AMERICAN > 90 mL/min (90-120)
--- NOTE | 2019-05-31 07:52 | NUR ---
ALERT AND ORIENTED. LUNGS DIMINISHED BILATERALLY. INSPIRATORY WHEEZES HEART THROUGHOUT. HEART SOUNDS S1 AND S2 HEARD IN ALL MARTINEZ. TELEMETRY IN PLACE. IV TO RFA PATENT WITHOUT REDNESS. WEARING BIPAP. DENIES PAIN. DENIES NEEDS. BED LOW. CALL CORDERO AND PERSONAL ITEMS IN REACH. WILL CONTINUE TO MONITOR.
[2019-05-31 07:59] VITALS: BP 137/89
--- NOTE | 2019-05-31 10:00 | NUR ---
RESTING IN BED. FAMILY AT BEDSIDE. DENIES NEEDS. WILL CONTINUE TO MONITOR.
[2019-05-31 11:16] LABS: LYMPHOCYTES 5 % (15-50); MONOCYTES 6 % (2-11); NEUTROPHILS 88 % (40-80); PLATELET ESTIMATE NORMAL
[2019-05-31 12:50] VITALS: BP 140/71
--- NOTE | 2019-05-31 14:23 | NUR ---
RESTING IN BED. DENIES NEEDS. WILL CONTINUE TO MONITOR.
[2019-05-31 16:08] VITALS: BP 134/71
--- NOTE | 2019-05-31 19:02 | NUR ---
RESTING IN BED. DENIES NEEDS. BED LOW. CALL CORDERO AND PERSONAL ITEMS IN REACH.
[2019-05-31 20:42] VITALS: BP 146/73
[2019-06-01] VITALS (12 sets, daily range): BP systolic 145–174; BP diastolic 86–106
--- NOTE | 2019-06-01 07:38 | NUR ---
ALERT AND ORIENTED. LUNGS DIMINISHED WITH WHEEZES TO BUL. HEART SOUNDS S1 AND S2 HEARD IN ALL MARTINEZ. BOWEL SOUNDS ACTIVE X 4. SKIN INTACT WITHOUT REDNESS. IV TO RFA PATENT WITHOUT REDNESS. WEARING BIPAP. DENIES NEEDS. BED LOW. FALL PRECAUTIONS IN PLACE. CALL CORDERO AND PERSONAL ITEMS IN REACH. WILL CONTINUE TO MONITOR.
--- NOTE | 2019-06-01 15:14 | NUR ---
RESTING IN BED. DENIES NEEDS. WILL CONTINUE TO MONITOR.
--- NOTE | 2019-06-01 17:07 | NUR ---
RECEIVED PT TO ROOM VIA STRETCHER ACCOMPANIED BY STAFF FROM FLOOR. PT PUT ON BIPAP, RR 47-PT DENIES ANY SOB OR ANXIETY. PT STATES "I FEEL FINE". ONLY UPPER LOBES MOVING AIR. PT USING INTERCOSTAL ACCESSORY MUSCLES TO BREATH. BILATERAL ARM BRUISES. LOWER EXTREMITIES HAVE +1 NON PITTING EDEMA. REDDENED SKIN ON BUTTOCKS, PT DENIES ANY DISCOMFORT. VSS. NO NEEDS OR DISTRESS AT THIS TIME. WILL CONT TO MONITOR.
--- NOTE | 2019-06-01 17:07 | NUR ---
PATIENT TRANSFERRRED TO ICU D/T O2 SAT 88% ON 40L. ATTEMPTED TO CALL CAROLYN TO NOTIFY OF TRANSFER. NO ANSWER AND NO VOICEMAIL.
--- NOTE | 2019-06-01 19:00 | NUR ---
PT REPORT RECEIVED FROM DAY SHIFT NURSE. SHIFT ASSESSMENT COMPLETED. PT ON BIPAP CURRENTLY. RT ADVISED TO NOT TAKE PT OFF BIPAP BC PT DESATS QUICKLY WHEN OFF. WILL CONTINUE TO MONITOR
--- NOTE | 2019-06-01 21:00 | NUR ---
PT RESTING IN BED CURRENTLY WATCHING TV. NO VISIBLE SIGNS OF DISTRESS NOTED. TRIED TO GIVE PT PO MEDS HOWEVER PT UNABLE TO TOLERATE COMING OFF BIPAP. PT DESATS QUICKLY
--- NOTE | 2019-06-01 23:00 | NUR ---
PT RESTING IN BED WATCHING TV. REASSESSMENT COMPLETED. NO VISIBLE SIGNS OF DISTRESS NOTED. BLOOD PRESSURE CONTINUING TO INCREASE. WILL CONTINUE TO MONITOR
[2019-06-02] VITALS (24 sets, daily range): BP systolic 125–172; BP diastolic 60–96
--- NOTE | 2019-06-02 01:05 | NUR ---
DR CRUZ PAGED REGARDING PT BP. AWAITING CALL BACK. PT CURRENTLY RESTING WITH BIPAP STILL IN USE.
--- NOTE | 2019-06-02 01:30 | NUR ---
PT COMPLAINED OF PAIN AT IV SITE. UPON FURTHER INSPECTION IT WAS DETERMINED THAT THE IV INFILTRATED. RIGHT FOREARM IV WAS REMOVED AND A NEW IV IS ABOUT TO BE STARTED.
--- NOTE | 2019-06-02 02:27 | NUR ---
NEW IV STARTED LEFT FOREARM. PT TOLERATED WELL. IV DRAWS AND FLUSHES.
--- NOTE | 2019-06-02 03:00 | NUR ---
PT REASSESSMENT COMPLETED. NO VISIBLE SIGNS OF DISTRESS NOTED. VSS. WILL CONTINUE TO MONITOR
--- NOTE | 2019-06-02 05:00 | NUR ---
PT RESTING IN BED. CURRENTLY ON BIPAP. NO VISIBLE SIGNS OF DISTRESS NOTED. VSS. WILL CONTINUE TO MONITOR
--- NOTE | 2019-06-02 07:30 | NUR ---
ASSESSMENT PER FLOW SHEET. PT IS WITHOUT DISTRESS THIS AM. AWAKENS AND IS ALERT. 02 SATS 93% ON BIPAP 100%.MONITOR
--- NOTE | 2019-06-02 09:18 | NUR ---
Nutrition follow-up: Pt is now in ICU due to respiratory distress; on BIPAP Diet: low sodium PO intake has declined due to BIPAP in place Labs reviewed wt: 174# +BM Pt would benefit from ProcalAmine PPN @ 75 ml/hr RDN following.
[2019-06-02 09:50] LABS: BASOPHILS 0 % (0-2); EOSINOPHILS 0.2 % (0-7); HEMATOCRIT 49.2 % (42.0-54.0); HEMOGLOBIN 16.1 g/dL (13.5-17.5); IMMATURE GRANULOCYTES 0.7 % (0-5); LYMPHOCYTES 4.8 % (15-50); MCH 31.4 pg (26.0-34.0); MCHC 32.7 g/dL (31.0-37.0); MCV 96.1 fL (80.0-100.0); MEAN PLATELET VOLUME 9.6 fL (7.4-10.4); MONOCYTES 3.5 % (2-11); NEUTROPHILS 90.8 % (40-80); PLATELET COUNT 309 10x3/uL (130-400); RBC 5.12 10x6/uL (4.20-6.10); RDW 14.2 % (11.5-14.5); WBC 29.5 10x3/uL (4.8-10.8)
[2019-06-02 09:51] LABS: CALC OSMOLALITY 278 mosm/kg (275-300); CALCIUM 8.2 mg/dL (8.5-10.1); CARBON DIOXIDE 35.5 mmol/L (21.0-32.0); CHLORIDE - SERUM 100 mmol/L (98-107); CREATININE - SERUM 0.8 mg/dL (0.6-1.3); POTASSIUM - SERUM 3.7 mmol/L (3.5-5.1); SODIUM 140 mmol/L (136-145); UREA NITROGEN 16 mg/dL (7-18); eGFR NON AFRICAN AMERICAN > 90 mL/min (90-120)
[2019-06-02 09:52] LABS: GLUCOSE 82 mg/dL (74-106)
--- NOTE | 2019-06-02 10:12 | NUR ---
REMAINS WITHOUT NEEDS.IV ABX INFUSING.WITHOUT CHANGE.
--- NOTE | 2019-06-02 10:30 | NUR ---
LYING IN BED,WITHOUT DISTRESS. 02 SATS NOW 91-92 ON 40 LITERS 100% VAPOTHERM.
--- NOTE | 2019-06-02 10:50 | NUR ---
PT O2 SATS DROPS TO 64%. PLACED BACK ON BIPAP 100% PER DR. DIEGO
--- NOTE | 2019-06-02 11:53 | NUR ---
PT IS WITHOUT DISTRESS.BIPAP 100%,02 SATS 93%.
--- NOTE | 2019-06-02 13:42 | NUR ---
ASSUMED CARE OF PT AT THIS TIME, PT RESTING IN BED ASLEEP. VSS AND WNL. WILL CONT TO FOLLOW POC
--- NOTE | 2019-06-02 14:34 | NUR ---
PT RESTING IN BED ASLEEP, VSS AND WNL. DENIES ANY NEEDS AT THIS TIME, WILL CONT TO FOLLOW POC
--- NOTE | 2019-06-02 15:29 | NUR ---
PT RR 35, O2 SAT 83%-88% ON BIPAP. RT HERE AND ASKED THEM TO COME TO ROOM, PT STATES HE FEELS ANXIOUS. PAGED
--- NOTE | 2019-06-02 15:40 | NUR ---
NEW ORDER RECIEVED FOR ATIVAN PRN ANXIETY
--- NOTE | 2019-06-02 16:35 | NUR ---
PT RESTING IN BED, FAMILY AT BEDSIDE. VSS AND WNL. DENIES ANY NEEDS AT THIS TIME, WILL CONT TO FOLLOW POC
--- NOTE | 2019-06-02 18:23 | NUR ---
PT RESTING IN BED, VSS AND WNL. CALL LIGHT WITHIN REACH. DENIES ANY NEEDS AT THIS TIME. WILL CONT TO FOLLOW POC
--- NOTE | 2019-06-02 19:00 | NUR ---
PT REPORT RECEIVED FROM DAY SHIFT NURSE. SHIFT ASSESSMENT COMPLETED AT THIS TIME. PT CURRENTLY ON BIPAP. NO VISIBLE SIGNS OF DISTRESS NOTED. WILL CONTINUE TO MONITOR
--- NOTE | 2019-06-02 21:00 | NUR ---
PT RESTING IN BED. UNABLE TO GIVE PO MEDS DUE TO PT BEING UNABLE TO TOLERATE COMING OFF OF BIPAP. VSS. WILL CONTINUE TO MONITOR
--- NOTE | 2019-06-02 23:00 | NUR ---
PT RESTING IN BED. REASSESSMENT COMPLETED AT THIS TIME. NO VISIBLE SIGNS OF DISTRESS NOTED AT THIS TIME. VSS. WILL CONTINUE TO MONITOR
[2019-06-03] VITALS (26 sets, daily range): BP systolic 127–166; BP diastolic 74–107; Ht 170.2 cm; Wt 86.8 kg
--- NOTE | 2019-06-03 01:00 | NUR ---
PT RESTING IN BED. BIPAP STILL IN USE. PT IS EASILY AROUSED. VSS. WILL CONTINUE TO MONITOR
--- NOTE | 2019-06-03 02:05 | NUR ---
PT BECAME TACHYCARDIC WITH A HR IN THE 140'S. PT ASSESSED AND WHEN AWOKEN WAS ALERT AND ORIENTED. NO VISIBLE SIGNS OF DISTRESS WERE NOTED.
--- NOTE | 2019-06-03 02:15 | NUR ---
ERWIN MOSS CALLED AND GIVEN UPDATE CONCERNING PT BECOMING TACHYCARDIC. ORDERS RECEIVED TO CONSULT CARDIOLOGY.
--- NOTE | 2019-06-03 02:20 | NUR ---
DR ANTONIO CARDIOLOGY CONSULTED REGARDING PT TACHYCARDIA. ORDERS RECEIVED TO START CARDIZEM DRIP AT 10MG/HR.
--- NOTE | 2019-06-03 03:15 | NUR ---
PT REASSESSMENT COMPLETED. CARDIZEM DRIP STARTED AT THIS TIME. NO VISIBLE SIGNS OF DISTRESS NOTED. VSS. WILL CONTINUE TO MONITOR
[2019-06-03 04:44] LABS: CALC OSMOLALITY 280 mosm/kg (275-300); CALCIUM 7.6 mg/dL (8.5-10.1); CARBON DIOXIDE 34.4 mmol/L (21.0-32.0); CHLORIDE - SERUM 103 mmol/L (98-107); CREATININE - SERUM 0.7 mg/dL (0.6-1.3); GLUCOSE 108 mg/dL (74-106); SODIUM 139 mmol/L (136-145); UREA NITROGEN 18 mg/dL (7-18); eGFR NON AFRICAN AMERICAN > 90 mL/min (90-120)
[2019-06-03 04:50] LABS: HEMATOCRIT 40.6 % (42.0-54.0); HEMOGLOBIN 13.1 g/dL (13.5-17.5); MCH 30.7 pg (26.0-34.0); MCHC 32.3 g/dL (31.0-37.0); MCV 95.1 fL (80.0-100.0); MEAN PLATELET VOLUME 9.5 fL (7.4-10.4); PLATELET COUNT 311 10x3/uL (130-400); RBC 4.27 10x6/uL (4.20-6.10); RDW 14.1 % (11.5-14.5); WBC 23.8 10x3/uL (4.8-10.8)
--- NOTE | 2019-06-03 05:00 | NUR ---
PT RESTING IN BED. BIPAP STILL IN USE. NO VISIBLE SIGNS OF DISTRESS NOTED. VSS. WILL CONTINUE TO MONITOR
--- NOTE | 2019-06-03 07:00 | NUR ---
PT RESTING IN BED, VSS AND WNL. SHIFT ASSESSMENT PERFORMED. DENIES ANY NEEDS AT THIS TIME. WILL CONT TO FOLLOW POC
--- NOTE | 2019-06-03 09:00 | NUR ---
PT RESTING IN BED, BIPAP ON AT 100%. VSS AND WNL. DENIES ANY NEEDS AT THIS TIME, CALL LIGHT WITHIN REACH. WILL CONT TO FOLLOW POC
[2019-06-03 10:04] LABS: LYMPHOCYTES 3 % (15-50); MONOCYTES 3 % (2-11); NEUTROPHILS 92 % (40-80); PLATELET ESTIMATE NORMAL; ROULEAUX OCC
--- NOTE | 2019-06-03 11:54 | NUR ---
HERE AND STATES PT CAN D/C NS WITH K DUE TO K LEVEL WNL. NEW ORDERS RECIEVED FOR D5NS
--- NOTE | 2019-06-03 12:00 | NUR ---
PIV TO PT LEFT FA INFILTRATED AND LEFT ARM SWOLLEN AND RED. REMOVED PIV WITH CATHETER TIP INTACT. 22G PIV INSERTED X1 ATTEMPT TO RIGHT FA. PT TOLERATED WELL. HERE AND NOTIFIED OF SWOLLEN LEFT ARM. NEW ORDERS RECIEVED TO OBTAIN A DOPPLER OF LEFT ARM TO RULE OUT THROMBUS.
--- NOTE | 2019-06-03 13:22 | NUR ---
HERE AND GAVE ORDERS TO INCREASE LOVENOX TO 80MG BID DUE TO POSITIVE DVT TO LEFT ARM
--- NOTE | 2019-06-03 15:00 | NUR ---
PT RESTING IN BED, CONTIUES BIPAP AT 100% VSS AND WNL. CALL LIGHT WITHIN REACH. DENIES ANY NEEDS AT THIS TIME. WILL CONT TO FOLLOW POC
[2019-06-03 15:10] LABS: ANCA - ANTIMYELOPEROXIDASE <9.0 U/mL (0.0-9.0); ANCA - ANTIPROTEINASE 3 <3.5 U/mL (0.0-3.5); ANCA - ATYPICAL <1:20 titer (Neg:<1:20); ANCA - CYTOPLASMIC <1:20 titer (Neg:<1:20); ANCA - PERINUCLEAR <1:20 titer (Neg:<1:20)
--- NOTE | 2019-06-03 16:00 | NUR ---
PT RIGHT ARM SWOLLEN, RED, AND WARM. PT HAS A PIV TO RIGHT FA. NOTIFIED . NEW ORDERS GIVEN TO PLACE CVL.
--- NOTE | 2019-06-03 16:50 | NUR ---
HERE AND PLACED CENTRAL LINE TO RIGHT IJ. PT TOLERATED WELL
--- NOTE | 2019-06-03 17:29 | NUR ---
NOTIFIED NURSE THAT CENTRAL LINE IS IN PLACE AND OK TO USE
--- NOTE | 2019-06-03 18:20 | NUR ---
PIV TO RIGHT FA REMOVED WITH CATHETER TIP INTACT. PT TOLERATED WELL
--- NOTE | 2019-06-03 19:00 | NUR ---
PT REPORT RECEIVED FROM DAY SHIFT NURSE. PT CURRENTLY ON BIPAP WITH OXYGEN SATS IN THE UPPER 80'S. PT ALERT AND ORIENTED. NO COMPLAINTS NOTED AT THIS TIME. SHIFT ASSESSMENT COMPLETED. WILL CONTINUE TO MONITOR
--- NOTE | 2019-06-03 20:15 | NUR ---
PT UNABLE TO TOLERATE REMOVING BIPAP TO TAKE ORAL PILLS. DESATS QUICKLY. WILL CONTINUE TO MONITOR
--- NOTE | 2019-06-03 21:00 | NUR ---
PT RESTING IN BED. ON BIPAP. NO VISIBLE SIGNS OF DISTRESS NOTED. CHANGED LOCATION OF PULSE OX FROM FINGERTIP TO FOREHEAD. BETTER PULSE OX READING AFTER CHANGE. VSS. WILL CONTINUE TO MONITOR
--- NOTE | 2019-06-03 23:00 | NUR ---
PT REASSESSMENT COMPLETED. NO VISIBLE SIGNS OF DISTRESS NOTED. VSS. NO COMPLAINTS NOTED AT THIS TIME. WILL CONTINUE TO MONITOR
[2019-06-04] VITALS (25 sets, daily range): BP systolic 143–178; BP diastolic 70–99
--- NOTE | 2019-06-04 01:00 | NUR ---
PT RESTING IN BED. NO VISIBLE SIGNS OF DISTRESS NOTED. VSS. PT REFUSED TO BE TURNED OFF HIS BACK. WILL CONTINUE TO MONITOR
--- NOTE | 2019-06-04 03:00 | NUR ---
PT REASSESSMENT COMPLETED. PT TOLERATED WELL. PT RESTING IN BED AROUSES EASILY NO VISIBLE SIGNS OF DISTRESS NOTED. VSS. WILL CONTINUE TO MONITOR.
[2019-06-04 04:12] LABS: ALBUMIN 1.9 g/dL (3.4-5.0); ALKALINE PHOSPHATASE 82 U/L (46-116); ALT (SGPT) 29 U/L (10-68); BILIRUBIN - TOTAL 0.49 mg/dL (0.2-1.3); CALCIUM 7.5 mg/dL (8.5-10.1); CARBON DIOXIDE 33.6 mmol/L (21.0-32.0); CHLORIDE - SERUM 104 mmol/L (98-107); CREATININE - SERUM 0.6 mg/dL (0.6-1.3); PHOSPHOROUS 2.1 mg/dL (2.5-4.9); PROTEIN - SERUM 5.7 g/dL (6.4-8.2); SODIUM 142 mmol/L (136-145); UREA NITROGEN 16 mg/dL (7-18); eGFR NON AFRICAN AMERICAN > 90 mL/min (90-120)
[2019-06-04 04:13] LABS: BASOPHILS 0 % (0-2); EOSINOPHILS 0 % (0-7); HEMATOCRIT 37.9 % (42.0-54.0); HEMOGLOBIN 12.2 g/dL (13.5-17.5); IMMATURE GRANULOCYTES 0.3 % (0-5); LYMPHOCYTES 2.3 % (15-50); MCH 30.3 pg (26.0-34.0); MCHC 32.2 g/dL (31.0-37.0); MEAN PLATELET VOLUME 9.5 fL (7.4-10.4); MONOCYTES 2.5 % (2-11); NEUTROPHILS 94.9 % (40-80); PLATELET COUNT 271 10x3/uL (130-400); RBC 4.03 10x6/uL (4.20-6.10); RDW 13.9 % (11.5-14.5); WBC 21.2 10x3/uL (4.8-10.8)
[2019-06-04 04:19] LABS: CALC OSMOLALITY 287 mosm/kg (275-300); GLUCOSE 171 mg/dL (74-106); POTASSIUM - SERUM 3.2 mmol/L (3.5-5.1)
--- NOTE | 2019-06-04 05:00 | NUR ---
PT RESTING IN BED. WANTS TO TAKE A BATH THIS MORNING. NO VISIBLE SIGNS OF DISTRESS NOTED AT THIS TIME. VSS. WILL CONTINUE TO MONITOR
--- NOTE | 2019-06-04 07:15 | NUR ---
PT RESTING IN BED, VSS AND WNL. RT HERE AND ASSITED NURSE WITH PLACING PT ON VAPOTHERM FOR ORAL CARE. PT O2 DROPPED DURING ORAL CARE AND PT HAD TO BE PLACED BACK ON BIPAP AT 100% CALL LIGHT WITHIN REACH, DENIES ANY NEEDS AT THIS TIME, WILL CONT TO FOLLOW POC
--- NOTE | 2019-06-04 09:20 | NUR ---
Nutrition follow-up: Pt with BIPAP in place Pt unable to eat at this time due to O2 sats drop too low Labs reviewed Wt: 181# +BM Recommend starting nutrition support soon. RDN following.
--- NOTE | 2019-06-04 09:24 | NUR ---
PT RESTING IN BED, VSS AND WNL. CALL LIGHT WITHIN REACH. DENIES ANY NEEDS AT THIS TIME, WILL CONT TO FOLLOW POC
--- NOTE | 2019-06-04 10:00 | NUR ---
PT RESTING IN BED, VSS AND WNL. PT CENTRAL LINE BLEEDING, SAND BAG APPLIED. DENIES ANY NEEDS AT THIS TIME, CONTINUES BIPAP AT 100%. CALL LIGHT WITHIN REACH. WILL CONT TO FOLLOW POC
--- NOTE | 2019-06-04 12:00 | NUR ---
PT RESTING IN BED, FAMILY AT BEDSIDE. CALL LIGHT WITHIN REACH. VSS AND WNL. DENIES ANY NEEDS AT THIS TIME, WILL CONT TO FOLLOW POC
--- NOTE | 2019-06-04 13:10 | NUR ---
PT BPM 45, PRN ATIVAN GIVEN ORDERED. WILL CONT TO FOLLOW POC
--- NOTE | 2019-06-04 13:40 | NUR ---
PT CENRAL LINE STILL BLEEDING WITH SANDBAG. FIBULAR DRESSING APPLIED. VSS AND WNL. DENIES ANY NEEDS AT THIS TIME, FAMILY AT BEDSIDE, WILL CONT TO FOLLOW POC
--- NOTE | 2019-06-04 15:51 | NUR ---
PT IS BREATHING 57 BPM. UNABLE TO CALM PT DOWN. PAGED . NEW ORDERS RECIEVED FOR YARELI.
--- NOTE | 2019-06-04 17:10 | NUR ---
PT RESTING COMFORTABLY AT THIS TIME, VSS, CALL LIGHT IN REACH
--- NOTE | 2019-06-04 18:33 | NUR ---
PAGED EDOUARD ROVING CAN TENDER WITH DUE TO PT BP RISING, NEW ORDERS RECIEVED FOR HYDRALAZINE 10MG PRN
--- NOTE | 2019-06-04 19:00 | NUR ---
BEDSIDE REPORT RECEIVED FROM DAY SHIFT, PT CARE ASSUMED. INTRODUCED SELF, PT LYING IN BED, AAOX4. C/O ANXIETY, REQUESTING ATIVAN. DENIES ANY OTHER NEEDS AT THIS TIME. BED IN LOWEST POSITION, SR X2, CALL LIGHT WITHIN REACH. WILL CONTINUE TO MONITOR.
--- NOTE | 2019-06-04 20:30 | NUR ---
ATIVAN AND NIGHT TIME MEDS ADMINISTERED, PER ORDER. PT REQUESTING BLANKET, PROVIDED BLANKET. DENIES ANY OTHER NEEDS AT THIS TIME. BED IN LOWEST POSITION, SR X2, CALL LIGHT WITHIN REACH. WILL CONTINUE TO MONITOR.
[2019-06-05] VITALS (32 sets, daily range): BP systolic 90–201; BP diastolic 6–89
--- NOTE | 2019-06-05 00:04 | NUR ---
PT RESTING IN BED, RR EVEN AND NONLABORED, NO S/S OF DISTRESS. VSS AND WNL. BED IN LOWEST POSITION, SR X2, CALL LIGHT WITHIN REACH. WILL CONTINUE TO MONITOR.
--- NOTE | 2019-06-05 01:00 | NUR ---
PT RESTING IN BED WITH EYES CLOSED, RR EVEN AND NONLABORED, NO S/S OF DISTRESS. VSS AND WNL. WILL CONTINUE TO MONITOR.
--- NOTE | 2019-06-05 02:30 | NUR ---
PT C/O "FEELING ANXIOUS", REQUESTING PRN ATIVAN. ATIVAN ADMINISTERED, PER ORDER. PT DENIES ANY OTHER NEEDS AT THIS TIME. BED IN LOWEST POSITION, SR X2, CALL LIGHT WITHIN REACH. WILL CONTINUE TO MONITOR.
--- NOTE | 2019-06-05 06:14 | NUR ---
PT'S O2 DESAT NOTED, HAVING ISSUE BRINGING BACK UP. ABG'S DRAWN, PER RT. PO2 IN THE 40'S, PER RT. EXPLAINED ISSUE AND POSSIBLE TX. PT VERBALIZED UNDERSANDING AND AGREED TO INTUBATION. FAMILY NOTIFIED. CODE CALLED, SEE CODE SHEET.
--- NOTE | 2019-06-05 06:15 | NUR ---
SPOKE WITH DR. DIEGO ORDERS TO INTUBATE AT THIS TIME
--- NOTE | 2019-06-05 07:00 | NUR ---
REPORT RECEIVED AT BEDSIDE. ETT SECURE TO VENT. BILATERAL LUNG SOUNDS EQUAL. IV RIJ WITH 4X4 TAPED OVER SITE, OLD BLOOD NOTED ON PATIENT AND DRESSING. PATIENT DOES OPEN EYES, LIFTS HANDS INSTRUCT TO LAY HIS HANDS DOWN AND HE DOES. RESP RATE 36. PULSE OX IN 70'S. DIPIRIVAN INFUSING AT 35 MCG/KG/MIN. CARDIZEM AT 10 MG HOUR. PROCALAMINE JAYLEN 75 ML HOUR. D5NS AT 30 ML HOUR. INTO RIGHT IJ TRIPLE LUMEN. PULSES WITH DOPPLER, RIGHT RADIAL FAINT TO HEAR WITH DOPPLER. EDEMA AND BRUSING NOTED IN ALL EXTREMITIES. MONITOR ST. LABORED RESP NOTED. TALKED WITH RESP THERAPY. ABG'S PENDING. HEAD OF BED ELEVATED 30 DEGREES.
[2019-06-05 07:10] LABS: HEMATOCRIT 39.3 % (42.0-54.0); HEMOGLOBIN 12.7 g/dL (13.5-17.5); MCH 30.7 pg (26.0-34.0); MCHC 32.3 g/dL (31.0-37.0); MCV 94.9 fL (80.0-100.0); MEAN PLATELET VOLUME 9.9 fL (7.4-10.4); PLATELET COUNT 265 10x3/uL (130-400); RBC 4.14 10x6/uL (4.20-6.10); RDW 14.1 % (11.5-14.5); WBC 25.3 10x3/uL (4.8-10.8)
[2019-06-05 07:21] LABS: CALC OSMOLALITY 287 mosm/kg (275-300); CALCIUM 7.6 mg/dL (8.5-10.1); CARBON DIOXIDE 32.9 mmol/L (21.0-32.0); CHLORIDE - SERUM 106 mmol/L (98-107); CREATININE - SERUM 0.6 mg/dL (0.6-1.3); GLUCOSE 132 mg/dL (74-106); MAGNESIUM - SERUM 2.3 mg/dL (1.8-2.4); PHOSPHOROUS 2.3 mg/dL (2.5-4.9); POTASSIUM - SERUM 3.3 mmol/L (3.5-5.1); SODIUM 142 mmol/L (136-145); UREA NITROGEN 20 mg/dL (7-18); eGFR NON AFRICAN AMERICAN > 90 mL/min (90-120)
--- NOTE | 2019-06-05 07:40 | NUR ---
OG TUBE INSERTED CONFIRMED PLACEMENT WITH AIR BOLUS. OG SECURE TO NG TO LOW INTERMITTENT SUCTION. PATIENT TOLERATED FAIR
--- NOTE | 2019-06-05 08:17 | NUR ---
DR. DIEGO CALLED REGARDING RESP RATE IN 30'S, PATIENT STILL WAKES UP WITH DIPRIVAN AT 100 MCG/KG/MIN. SON AT BEDSIDE UPDATE GIVEN. ORDERS RECEIVED. TO INCREASE PEEP TO 10. RESP THERAPY NOTIFIED. ORDERS FOR MORPHINE AND VERSE RECEIVED FOR SEDATION
[2019-06-05 08:41] LABS: LYMPHOCYTES 1 % (15-50); MONOCYTES 3 % (2-11); NEUTROPHILS 96 % (40-80); PLATELET ESTIMATE NORMAL; TOXIC GRANULATION 1+
--- NOTE | 2019-06-05 09:00 | NUR ---
DIPIRVAN INCREASED TO DECREASE RESP RATE BELOW 30, AND HELP TO RELAX AND LET VENTILATOR DO THE BREATHING. PATIENT RATE BELOW 30. PATIENT RESTING COMFORTABLE AT THIS TIME. FAMILY HERE UPDATES GIVEN
--- NOTE | 2019-06-05 09:00 | NUR ---
CENTRAL LINE DRESSING CHANGE DONE IN [employer]OL YEAR [employer]. NO BLEEDING AT SITE OR SUTURE SITES NOTED. 4X4 TRI-FOLDED PLACED OVER SILVER DISK DRESSING SECURE TO SKIN. PATIENT TOLERATED WELL.
--- NOTE | 2019-06-05 10:00 | NUR ---
doyle cath insert 16 fr. in reprographics technician. without difficulty. immediate return of yellow urine 150 ml. patient tolerated well. secure to right thigh. bag placed below bed.
--- NOTE | 2019-06-05 11:00 | NUR ---
complete bed bath given with hibclens. oral care done. patient tolerated well
--- NOTE | 2019-06-05 11:30 | NUR ---
dr. lopez here orders received. vent changes made
--- NOTE | 2019-06-05 13:30 | NUR ---
repositioned. pulse ox still going up and down. 80's to 90's. resting comfortably dipirivan at 70 mcg kg min.
--- NOTE | 2019-06-05 14:00 | NUR ---
michelle barajas. oral meds started this am
--- NOTE | 2019-06-05 16:00 | NUR ---
NO DISTRESS. NO LABORED RESP. ETT SECURE. HEAD OF BED ELEVATED 30 DEGREES
--- NOTE | 2019-06-05 21:41 | NUR ---
PT FAMILY IN FOR VISITATION, DENIES ANY NEEDS AT THIS TIME.
[2019-06-06] VITALS (24 sets, daily range): BP systolic 114–162; BP diastolic 65–93
--- NOTE | 2019-06-06 01:01 | NUR ---
PT REPOSITIONED FOR COMFORT SUPPORTED WITH PILLOWS, ORAL CARE PROVIDED, VSS, CONT POC.
--- NOTE | 2019-06-06 03:45 | NUR ---
CHG BATH AND COMPLETE LINEN CHANGE DONE, PT TOLERATED WITHOUT DIFFICULTY, VSS, POSITIONED SUPPORTED WITH WEDGES AND PILLOWS.
[2019-06-06 04:03] LABS: BASOPHILS 0 % (0-2); EOSINOPHILS 0 % (0-7); HEMATOCRIT 33.8 % (42.0-54.0); HEMOGLOBIN 10.6 g/dL (13.5-17.5); IMMATURE GRANULOCYTES 0.4 % (0-5); MCH 29.9 pg (26.0-34.0); MCHC 31.4 g/dL (31.0-37.0); MCV 95.5 fL (80.0-100.0); MEAN PLATELET VOLUME 9.7 fL (7.4-10.4); MONOCYTES 1.7 % (2-11); NEUTROPHILS 96.9 % (40-80); PLATELET COUNT 184 10x3/uL (130-400); RBC 3.54 10x6/uL (4.20-6.10); WBC 22.4 10x3/uL (4.8-10.8)
[2019-06-06 04:11] LABS: ALBUMIN 1.7 g/dL (3.4-5.0); ALKALINE PHOSPHATASE 81 U/L (46-116); ALT (SGPT) 23 U/L (10-68); CALC OSMOLALITY 283 mosm/kg (275-300); CALCIUM 7.5 mg/dL (8.5-10.1); CARBON DIOXIDE 31.1 mmol/L (21.0-32.0); CHLORIDE - SERUM 105 mmol/L (98-107); CREATININE - SERUM 0.6 mg/dL (0.6-1.3); GLUCOSE 139 mg/dL (74-106); MAGNESIUM - SERUM 2.3 mg/dL (1.8-2.4); PHOSPHOROUS 2.7 mg/dL (2.5-4.9); PROTEIN - SERUM 5.2 g/dL (6.4-8.2); SODIUM 140 mmol/L (136-145); UREA NITROGEN 21 mg/dL (7-18); eGFR NON AFRICAN AMERICAN > 90 mL/min (90-120)
--- NOTE | 2019-06-06 05:09 | NUR ---
NO VISITORS PRESENT AT THIS TIME, VSS, CONT POC.
--- NOTE | 2019-06-06 14:00 | NUR ---
TUBE FEEDING STARTED PULMOCARE AT 20 ML HOUR PER PUMP. HEAD OF BED ELEVATED 30.
--- NOTE | 2019-06-06 14:49 | NUR ---
patient with labored resp. abd and chest heavy movement noted. versed given with relief. no more labored resp
--- NOTE | 2019-06-06 16:00 | NUR ---
PULSE OX STILL FLUCACUATING 70'S TO LOW 90'S. MINIMAL SUCTIONED FROM ETT OR ORALLY. GOOD URINE OUTPUT. DIPRIVAN AT 65 MCG/KG/MIN, PROCALAMINE AT 75 ML HOUR, NS AT 10 ML HOUR FOR IVPB. MONITOR SR. JUDGE CATH PATENT. RIJ TRIPLE LUMEN DRESSING DRY AND INTACT.
--- NOTE | 2019-06-06 18:00 | NUR ---
NO CHANGES TUBE FEEDING CONTINUES AT 20 ML HOUR
[2019-06-07] VITALS (13 sets, daily range): BP systolic 134–148; BP diastolic 73–83
[2019-06-07 05:43] LABS: HEMOGLOBIN 11.2 g/dL (13.5-17.5); MCH 30.3 pg (26.0-34.0); MCHC 31.1 g/dL (31.0-37.0); MCV 97.3 fL (80.0-100.0); MEAN PLATELET VOLUME 10.6 fL (7.4-10.4); PLATELET COUNT 153 10x3/uL (130-400); RDW 14.3 % (11.5-14.5); WBC 26.9 10x3/uL (4.8-10.8)
[2019-06-07 06:09] LABS: % SATURATION 23 % (15-55); IRON 43 ug/dl (35-150); TOTAL IRON BIND CAPACITY 185 ug/dl (260-445); UNSAT IRON BIND CAPACITY 142 ug/dl (150-375)
[2019-06-07 06:19] LABS: ALBUMIN 1.9 g/dL (3.4-5.0); ALKALINE PHOSPHATASE 89 U/L (46-116); BILIRUBIN - TOTAL 0.39 mg/dL (0.2-1.3); CALC OSMOLALITY 285 mosm/kg (275-300); CALCIUM 7.8 mg/dL (8.5-10.1); CARBON DIOXIDE 31.6 mmol/L (21.0-32.0); CHLORIDE - SERUM 105 mmol/L (98-107); CREATININE - SERUM 0.7 mg/dL (0.6-1.3); FERRITIN 633 ng/mL (3-244); GLUCOSE 175 mg/dL (74-106); PROTEIN - SERUM 5.8 g/dL (6.4-8.2); SODIUM 139 mmol/L (136-145); UREA NITROGEN 23 mg/dL (7-18); eGFR NON AFRICAN AMERICAN > 90 mL/min (90-120)
[2019-06-07 06:44] LABS: ALT (SGPT) 37 U/L (10-68); POTASSIUM - SERUM 4.8 mmol/L (3.5-5.1)
--- NOTE | 2019-06-07 07:00 | NUR ---
REPORT RECIEVED, SHIFT ASSESSMENT COMPLETE, PT IS SEDATED ON VENT, ON 100% FIO2 WITH 88% O2 SAT. ALL PPP, ALL OTHER VSS, WILL CON'T TO MONITOR
--- NOTE | 2019-06-07 08:23 | NUR ---
FRANCIS HEAD STILL OPERATOR AT BEDSIDE, UPDATE GIVEN, NEW ORDERS RECIEVED,
[2019-06-07 08:35] LABS: EOSINOPHILS 1 % (0-7); LYMPHOCYTES 3 % (15-50); MONOCYTES 4 % (2-11); NEUTROPHILS 87 % (40-80); PLATELET ESTIMATE NORMAL
[2019-06-07 08:36] LABS: ANISOCYTOSIS OCC; SCHISTOCYTES OCC
--- NOTE | 2019-06-07 09:39 | NUR ---
Nutrition follow-up: Pt is now intubated, sedated with propofol ProcalAmine PPN @ 75 ml/hr Pulmocare started @ 20 ml/hr with goal rate of 45 ml/hr Labs reviewed WT: 191# RDN following.
--- NOTE | 2019-06-07 11:00 | NUR ---
REPOSITIONED FOR COMFORT, RESTRAINTS REMOVED,
--- NOTE | 2019-06-07 12:28 | NUR ---
DR. DIEGO AT BEDSIDE, SPOKE AT LENGTH WITH FAMILY ABOUT POC, TERMINAL EXTUBATION ORDERS GIVEN
--- NOTE | 2019-06-07 12:45 | NUR ---
COMPLETE BATH AND LINEN CHANGE
--- NOTE | 2019-06-07 13:00 | NUR ---
PT TERMINALLY EXTUBATED AT THIS TIME, FAMILY AT BEDSIDE,
--- NOTE | 2019-06-07 13:45 | NUR ---
PT ASYSTOLE ON THE MONITOR, DR. DIEGO AND FRANCIS GOLDEN NOTIFIED,
--- NOTE | 2019-06-07 13:52 | NUR ---
DR. DIEGO AT BEDSIDE TO PRONOUNCE
--- NOTE | 2019-06-07 14:05 | NUR ---
MARGY NOTIFIED OF PT
--- NOTE | 2019-06-07 14:08 | NUR ---
HOME NOTIFIED OF NEED OF SERVICES
--- NOTE | 2019-06-07 14:50 | NUR ---
HOME HERE FOR PT
--- NOTE | 2019-06-07 17:20 | MORECARE ---
CASE MANAGEMENT DISCHARGE SUMMARY PATIENT: NINFA CHAVEZ UNIT: [id number] ADM DATE: 05/21/19 AGE: 74 : [birth year] SEX: M ROOM/BED: D.2304 AUTHOR: ISAIAH SANDOVAL PHYSICIAN: REFERRING PHYSICIAN: QUIANA CRUZ MD DATE OF SERVICE: 06/07/19 Discharge Plan Patient Name: NINFA CHAVEZ Facility: [facility]:[place] : 1945 Planned Disposition: Nursing Facility [facility] Cert Anticipated Discharge Date: Discharge Date: 06/07/2019 Expected LOS: Initial Reviewer: [email or web address] Initial Review Date: 05/26/2019 Generated: 06/07/19 6:20 pm DCP- Discharge Planning Updated by [email or web address]: Lilliana Gonsalez on 05/26/19 6:[address] Patient Name: NINFA CHAVEZ Admission Status: ER Accout number: [id number] Admission Date: 05-21-2019 : 1945 Admission Diagnosis: Attending: QUIANA CRUZ Current LOS: 5 Anticipated DC Date: Planned Disposition: Nursing Facility [facility] Cert Primary Insurance: MEDICARE PART A ONLY Discharge Planning Comments: CM met with patient to discuss discharge planning, he is alone in the room. He states he lives at [facility] in a custodial bed. States he has lived there for about a month and a half. He states plan is to return to [facility]. CM will continue to follow and assist with discharge planning/needs. Track Repairer Helper: Lilliana Gonsalez DCPIA - Discharge Planning Initial Assessment Updated by [email or web address]: Lilliana Gonsalez on 05/26/19 7:38 am * Is the patient Alert and Oriented? Yes * How many steps to enter\exit or inside your home? 0/0 * PCP Dr Cruz at [facility] * Pharmacy All medications from 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 * ADLs Partial Dependent * Partial ADLs (Assistance needed) Ambulation Bathing Dressing Medication Management Toileting Transfers * Equipment Oxygen Wheelchair * Other Equipment All equipment from [facility]. States he is always in a wheelchair and uses oxygen 24 hours a day. * List name and contact numbers for known caregivers / representatives who currently or will assist patient after discharge: Lazara Chavez - - c [phone] * Verbal permission to speak to the caregivers and representatives has been obtained from the patient. Yes * Community resources currently utilized None * Additional services required to return to the preadmission environment? No * Can the patient safely return to the preadmission environment? Yes * Has this patient been hospitalized within the prior 30 days at any hospital? No Coverage Notice Reviewer: [email or web address] Gino Gonsalez Notice Issued Date-Time: 05/26/2019 7:51 Notice Type: Patient Choice Letter Notice Delivered To: Patient Relationship to Patient: Self Lumber Checker Name: Delivery Method: HAND - Hand Delivered Karlene Days: Prior Verbal Notification: Recipient Understood Notice: Yes Recipient Signature: Yes Med Rec Note Co-signed by Attending: Coverage Notice Comment: Joo Cleary DP export: 05/27/19 11:09 a Patient Name: NINFA CHAVEZ Page [id number] at 1720 All edits/amendments must be made on the electronic document DICTATION DATE: 06/07/191719 CREDIT RISK ANALYST: RICCI 06/07/19 172 RPT#: [id number] DC DATE:06/07/19 STATUS: DIS IN [facility] [address] [place] [address] END OF REPORT
--- NOTE | 2019-06-08 16:18 | NUR ---
Per CMS protocol, restraint report logged into data base.
--- NOTE | 2019-06-15 11:17 | OP ---
PATIENT NAME: NINFA JULIAN MEDICAL RECORD: [id number] :[birth year] LOCATION:.[facility] D.2304 ADMISSION DATE:05/21/19 SURGEON: VINEET GRANGER MD DATE OF OPERATION: 06/03/2019 PREOPERATIVE DIAGNOSES: 1. Ventilatory failure requiring IV medications. 2. Swollen bilateral upper extremities. POSTOPERATIVE DIAGNOSES: 1. Ventilatory failure requiring IV medications. 2. Swollen bilateral upper extremities. PROCEDURE: Insertion of right internal jugular triple-lumen central venous catheter. SURGEON: Vineet Granger MD RETAIL ADVISOR: None. BLOOD LOSS: Minimal. ANESTHESIA: Local. COMPLICATIONS: None. The risks, possible complications and alternatives to the procedure were explained to the patient. A consent form was signed. OPERATIVE COURSE: The patient was seen in his room. The patient is on BiPAP. The right neck was sterilely prepped and draped. Local anesthetic was used to create the skin and subcutaneous tissue at the base of the right neck. The right internal jugular vein was percutaneously accessed in an antegrade fashion. A guidewire was passed easily. A small skin eros was accomplished. A vessel dilator was used to dilate a subcutaneous tract. A 16-cm triple-lumen central venous catheter was inserted to the hub. It was sutured in place times 3. All lumens flushed easily and aspirated dark, nonpulsatile blood. A stat portable chest x-ray is pending. TRANSINT:[id number] Voice Confirmation ID: [id number] DOCUMENT ID: [id number] VINEET GRANGER MD at 1117 CC: [id number] DICTATION DATE: 06/03/191720 RESEARCH PROGRAM INTERNSHIP: 06/03/192007 DIS IN 06/07/19 [facility] [address] [place] [address]
== END 2019-06-07 13:52 | DRG 208 ==
LOC: D.ER 00:31 → D.ICU 01:21 → D.MS 01:21 → D.ICU 06-01 17:03
PROVIDERS: Emergency Medicine; Internal Medicine Pulmonary Disease; ADMIT Legal Medicine; ATTEND Legal Medicine
PROC: 5A09357 Assistance with Respiratory Ventilation, Less than 24 Consecutive Hours, Continuous Positive Airway Pressure (ICD-10-PCS; principal; 2019-05-23)
PROC: 05HM33Z Insertion of Infusion Device into Right Internal Jugular Vein, Percutaneous Approach (ICD-10-PCS; 2019-06-03)
PROC: 5A1945Z Respiratory Ventilation, 24-96 Consecutive Hours (ICD-10-PCS; 2019-06-05)
PROC: 0BH17EZ Insertion of Endotracheal Airway into Trachea, Via Natural or Artificial Opening (ICD-10-PCS; 2019-06-05)
DX: J15.6 Pneumonia due to other Gram-negative bacteria (principal); J96.22 Acute and chronic respiratory failure with hypercapnia; J96.21 Acute and chronic respiratory failure with hypoxia; I48.92 Unspecified atrial flutter; E87.1 Hypo-osmolality and hyponatremia; J47.1 Bronchiectasis with (acute) exacerbation; I82.622 Acute embolism and thrombosis of deep veins of left upper extremity; I10 Essential (primary) hypertension; D72.829 Elevated white blood cell count, unspecified; E87.6 Hypokalemia; Z99.81 Dependence on supplemental oxygen; K21.9 Gastro-esophageal reflux disease without esophagitis; N40.0 Benign prostatic hyperplasia without lower urinary tract symptoms; J30.9 Allergic rhinitis, unspecified; J43.9 Emphysema, unspecified; I71.2 Thoracic aortic aneurysm, without rupture; R53.81 Other malaise; R00.0 Tachycardia, unspecified; Z66 Do not resuscitate; Z85.46 Personal history of malignant neoplasm of prostate; D64.9 Anemia, unspecified; F41.9 Anxiety disorder, unspecified; J15.212 Pneumonia due to Methicillin resistant Staphylococcus aureus; J84.10 Pulmonary fibrosis, unspecified; R09.2 Respiratory arrest